=== PATIENT | female | born 1970 ===

== ENCOUNTER 2017-01-28 11:09 | Day surgery (SDC) | payer MEDICARE ==
[2017-01-28 11:54] VITALS: BMI 31.4
[2017-01-28] MEDS ORDERED: Lactated Ringer's 500 ML IV ONE (12:57)
[2017-01-28] MEDS ORDERED: Midazolam 2 MG/2 ML VIAL ONE (13:07)
[2017-01-28] MEDS ORDERED: Lidocaine Hydrochloride 5 ML INJ ONE (13:08)
[2017-01-28] MEDS ORDERED: Propofol 10 mg/ml Inj (20 ML) ONE ×2 (13:08→13:16)
[2017-01-28] MEDS ORDERED: Lactated Ringer's 500 ML IV SCH (13:15)
[2017-01-28 14:48] VITALS: TEMP 97.5
[2017-01-28 15:01] VITALS: O2SAT 98
[2017-01-28 15:02] VITALS: BP 120/84; PULSE 86; RESP 17
== END 2017-01-28 14:50 | disposition home or self-care (01) ==
LOC: C.ENDO 11:09
PROVIDERS: ATTEND Internal Medicine Gastroenterology
DX: K31.7 Polyp of stomach and duodenum (principal); D64.9 Anemia, unspecified; K29.70 Gastritis, unspecified, without bleeding; K64.8 Other hemorrhoids
CPT/HCPCS: 43270; 45378; 84703; 88305; 88313; 88342; J2250; J2704; J7120